=== PATIENT | male | born 1990 | race African-American/Black ===

== ENCOUNTER 2019-01-04 19:14 | Emergency (ER) | payer OTHER ==
[~2019-01-04] VITALS: Ht 180.3 cm; Wt 81.6 kg
[2019-01-04 19:40] VITALS: BP 144/94
--- NOTE | 2019-01-04 19:44 | NUR ---
PT AMBULATED TO BED 4.
--- NOTE | 2019-01-04 20:00 | NUR ---
28 Y/O MALE C/O LACERATION BETWEEN RIGHT 4TH/5TH DIDGIT. SUSTAINED LAC WHILE DOING DISHES AT HOME. CUT ON GLASS. PAIN IS A 5/10 THROBBING PAIN. SIDE RAILS X1. ER MD MADE AWARE OF STATUS. HX: DENIES MEDS: DENIES
--- NOTE | 2019-01-04 20:00 | NUR ---
PA AT BEDSIDE.
[2019-01-04] MEDS ORDERED: LIDOCAINE 1% 500 MG/50 ML VIAL INJ SCH (20:05)
--- NOTE | 2019-01-04 20:37 | NUR ---
PA AT BEDSIDE FOR PROCEDURE.
[2019-01-04] MEDS ORDERED: LIDOCAINE MPF 1% - 5 mL VIAL 5 ML ONE (20:44)
[2019-01-04 21:29] VITALS: BP 144/94
--- NOTE | 2019-01-05 02:34 | NUR ---
Patient discharged with v/s stable. Written and verbal after care instructions given and explained. Patient alert, oriented and verbalized understanding of instructions. Ambulatory with steady gait. All questions addressed prior to discharge. ID band removed. Patient advised to follow up with PMD. Rx of ibuprofen 400mg given. Patient educated on indication of medication including possible reaction and side effects. Opportunity to ask questions provided and answered.
== END 2019-01-04 21:29 | disposition home or self-care (01) ==
LOC: MED 19:14
DX: S61.411A Laceration without foreign body of right hand, initial encounter (principal); Z79.899 Other long term (current) drug therapy; W45.8XXA Other foreign body or object entering through skin, initial encounter; Y93.G1 Activity, food preparation and clean up; Y92.89 Other specified places as the place of occurrence of the external cause; Y99.8 Other external cause status
CPT/HCPCS: 12002; 99283; J2001

== ENCOUNTER 2019-05-05 16:37 | Emergency (ER) | payer OTHER ==
[~2019-05-05] VITALS: Ht 177.8 cm; Wt 79.4 kg
[2019-05-05 17:02] VITALS: BP 119/66
--- NOTE | 2019-05-05 20:02 | NUR ---
pt ambulated to [facility].
--- NOTE | 2019-05-05 20:05 | NUR ---
PATIENT ASSESSMENT COMPLETED AT THIS TIME. PATIENT SITTING UP IN CHAIR. NO NEEDS ADDRESSED AT THIS TIME. ERMD AWARE.
--- NOTE | 2019-05-05 20:15 | NUR ---
PT L ANKLE WRAPPED WITH TOM WRAP. +CSM
--- NOTE | 2019-05-05 20:16 | NUR ---
PT L FOOT PLACED IN ORTHOPEDIC SHOE, SIZE MENS LARGE. SHOE ADJUSTED TO PT SIZE. +CAP REFILL
--- NOTE | 2019-05-05 21:00 | NUR ---
PT GIVEN PROPER INSTRUCTION ON USE OF CRUTCHES. PT STATED HE HAD PREVIOUS USE WITH CRUTCHES. CRUTCHES FITTED TO PT HEIGHT AND ARM LENGTH. PT GIVEN INSTRUCTION ON PROPER USE OF CRUTCHES, INCLUDING SITTING OT STANDING AND VICE VERSA, AND WALKING. PT DEMONSTRATED SAFE USE FOR APPROXIMATELY 40 FEET, PT STATED HE FELT COMFORTABLE WITH USE.
[2019-05-05 21:09] VITALS: BP 119/66
--- NOTE | 2019-05-05 21:09 | NUR ---
PATIENT D/C BY DR KING. AMB WITH CRUTCHES TO LOBBY.
== END 2019-05-05 21:09 | disposition home or self-care (01) ==
LOC: MED 16:37
DX: S82.892A Other fracture of left lower leg, initial encounter for closed fracture (principal); X58.XXXA Exposure to other specified factors, initial encounter; Y93.89 Activity, other specified; Y92.89 Other specified places as the place of occurrence of the external cause; Y99.8 Other external cause status
CPT/HCPCS: 73610; 99283